=== PATIENT | male | born 1955 | race Caucasian/White ===

== ENCOUNTER 2016-07-11 05:46 | Day surgery (SDC) | payer OTHER ==
--- NOTE | 2016-07-10 11:32 | PCM.ANEPRE ---
Anesthesia Pre-Op Review Reason for Review: STOP BANG 09/15 COMORBIDITIES-OBESITY,HTN,DM,HX CVA Anesthesia Recommendations: Proceed with Procedure Additional Comments 61 year old male for low risk surgery 4th Toe condylectomy by Dr. Carrizales for expanding ulcer. stop bang 09/15. obesity, HTN, DM hx of CVA. consider BLANCA protocol.unable to elicit 4 mets due to chronic foot ulcer. ultimate decision by anesthesiologist day of after focused H&P. Bk Tran MD Jul 10, 2016 11:32
[~2016-07-11] VITALS: Ht 175.3 cm; Wt 115.0 kg
[~2016-07-11 05:46] MED LIST: ASPI-973 PO; ATOR20TA PO; CIPR-231 PO; HYDR-4003 PO; INSU100I SQ; INSU100I13 SUBQ; KEN1O TP; LISI-567 PO; METF850T2 PO; METR45GE TP; MULT-1018 PO; OMEG1CAP25 PO; OMEP20TA86 PO
[2016-07-11] MEDS ORDERED: Propofol 10,000 mCg/mL 20 mL Inj ONE (05:47)
[2016-07-11] MEDS ORDERED: fentaNYL-PF 50 mCg/mL 2 mL Inj ONE (05:47)
[2016-07-11] MEDS: Lactated Ringer's 1,000 ML IV SCH ×2 (05:51→07:31)
[2016-07-11] MEDS ORDERED: HYDR12.55 PO (06:06)
[2016-07-11 06:28] VITALS: BP 155/75; PULSE 73; RESP 18; O2SAT 99
[2016-07-11] MEDS ORDERED: CeFAZolin Inj 2 GM in IV Premix 1 EACH IV ONE (07:00)
[2016-07-11] MEDS ORDERED: HYDROmorphone 1 mg/mL Inj IVPUSH PRN (07:25)
[2016-07-11] MEDS ORDERED: fentaNYL-PF 50 mCg/mL 2 mL Inj IVPUSH PRN (07:25)
[2016-07-11] MEDS ORDERED: hydrALAZINE 20 mg/mL Inj IVPUSH PRN (07:25)
[2016-07-11] MEDS ORDERED: EPHEDrine Sulfate 50 mg/mL Inj IVPUSH PRN (07:25)
[2016-07-11] MEDS ORDERED: Lactated Ringer's 500 ML IV PRN (07:25)
[2016-07-11] MEDS ORDERED: MetoCLOpramide 5 mg/mL 2 mL Inj IVPUSH PRN (07:25)
[2016-07-11] MEDS ORDERED: Atropine 0.4 mg/mL Inj IVPUSH PRN (07:25)
[2016-07-11] MEDS ORDERED: Phenylephrine 10,000 mCg/mL Inj IVPUSH PRN (07:25)
[2016-07-11] MEDS ORDERED: Labetalol 5 mg/mL 4 mL Inj IV PRN (07:25)
[2016-07-11] MEDS ORDERED: Ondansetron 2 mg/mL 2 mL Inj IVPUSH PRN (07:25)
[2016-07-11] MEDS ORDERED: Lactated Ringer's 1,000 ML IV SCH (07:25)
--- NOTE | 2016-07-11 07:25 | PCM.HPANE ---
Patient Data Date of Service: Jul 11, 2016 Surgeon Admitting Provider: Attending Provider:Sonya Carrizales DPM Primary Care Physician:Medical Clinic,[facility] Other Provider:Nathalie Dial Anesthesia Reason for Visit Right Ulcer To Bone Ht/WT & BMI Height (Feet): 5 Height (Inches): 9.00 Weight (Kilograms): 115.0 Body Mass Index 37.00 Allergies Coded Allergies: No Known Allergies (Verified Allergy, Unknown, 07/09/16) Past Anesthesia History Anesthesia History: Denies:: Abnormal Airway, Anesthesia Reactions, Difficult Intubation, Malignant Hyperthermia Diabetes History Hx Diabetes?: Yes Type of Diabetes: Type II Glycemic Control: Insulin & Oral Medication Current Bedside Blood Glucose: 145 MRSA MRSA: No Medications Blood Thinner: Aspirin Hypertension Medication: Yes (LISINOPRIL) Home Meds Incl Beta Coretta: No Reported Medications Hydrochlorothiazide 12.5 Mg Wtichv19.5 Mg PO DAILY 30 Days Ref 0 07/11/16 Triamcinolone Acet (Triamcinolone Acetonide Ointment)1 Applic/0.25 Gm Oint1 Applic TP BID #60 GM Ref 0 0.1% 07/09/16 Triamcinolone Acet (Triamcinolone Acetonide Ointment)1 Applic/0.25 Gm Oint1 Applic TP BID #60 GM Ref 0 07/09/16 Omeprazole 20 Mg Tablet.dr20 Mg PO DAILY 07/09/16 [place]-3 Fatty Acids/Fish Oil ([place] 3 Fish Oil Softgel)1 Each Capsule.dr1 Each PO DAILY 07/09/16 Insulin Aspart (NovoLOG U-100 Pen)100 Unit/Ml Insuln.pen6-8 Units SQ TIDAC SLIDING SCALE 07/09/16 Metronidazole (Metronidazole Gel)1 Applic/0.25 Gm Gel1 Applic TP DAILY #45 GM Ref 0 0.75% 07/09/16 Metformin 850 Mg Mpnhwg522 Mg PO DAILY Ref 0 07/09/16 Lisinopril 20 Mg Gvicoe51 Mg PO DAILY 30 Days Ref 0 07/09/16 Insulin Glargine (Lantus U100 Solostar Insulin Pen)100 Unit/1 Ml Insuln.pen30 Unit SUBQ BID #1 PENINJ Ref 0 PLEASE VERIFY DOSAGE 07/09/16 Atorvastatin (Lipitor)20 Mg Jvetho28 Mg PO DAILY Ref 0 07/09/16 Aspirin 81 Mg Muckam21 Mg PO DAILY Ref 0 07/09/16 Discontinued Reported Medications Hydrocodone-Acetaminophen 5-325 mg 1 Each Tablet1 Tablet PO Q6H PRN For Pain Ref 0 07/09/16 Multivitamin (Multi Vitamin Daily)1 Each Tablet1 Each PO DAILY 30 Days Ref 0 07/09/16 Ciprofloxacin (Cipro)500 Mg Sbqrzl438 Mg PO BID Ref 0 07/09/16 Levofloxacin 500 Mg Bgusqx907 Mg PO DAILY 10 Days 08/05/13 [amlodipine] No Conflict Check5 Mg PO DAILY 11/19/12 Aspirin (Miniprin)81 Mg Tablet.dr81 Mg PO DAILY 11/18/12 Citalopram-Expunged Drug, Do Not Renew! 20 Mg Radljf37 Mg PO DAILY 11/18/12 Vitamin B Complex (D-Eueamam-Fnvnhhl B-12)1 Each Tablet1 Each PO DAILY 11/18/12 Ranitidine Hcl (Zantac 75)75 Mg Nupkxc938 Mg PO DAILY 11/18/12 Cholecalciferol (D3)-Expunged Drug, Do Not Re (Vitamin Y-9-Azfzjpkd Drug, Do Not Renew!)2,000 Unit Capsule2,000 Unit PO DAILY 11/18/12 Insulin Aspart-Expunged Drug, Do Not Renew! (Novolog-Expunged Drug, Do Not Renew !)100 U/Ml Cartridge U Sq Tidwm 6-8 units plus sliding scale three times daily with meals 02/06/11 Simvastatin-Expunged Drug, Choose New Med! 20 Mg Jxomxu89 Po Hs 02/06/11 Lisinopril-Expunged Drug, Do Not Renew! 20 Mg Vraucb66 Mg PO DAILY 02/06/11 History History of ENT Problems?: No HEENT History: Denies:: Abnormal Airway Cataracts Difficult Intubation Dysphagia Sinus Problem Hx of Heart Problems?: Yes Cardiovascular History: Positive for:: Hypertension (HYPERLIPIDEMIA) Irregular Heartbeat (HX SVT DX BY KIMANI DENTON 04/2011) Denies:: Abdominal Aortic Aneurism Atrial Fibrillation Cardiac Surgery Chest Pain Congestive Heart Failure Edema Pacemaker Thrombophlebitis Valvular Heart Disease Hx of Respiratory Problem?: No Respiratory History: Denies:: Asthma COPD Chest Surgery Emphysema Tuberculosis Use of C-PAP Machine Hx Neurologic Problems?: Yes Neurological History: Positive for:: CVA (SLIGHT VISION CHANGES,POSS COGNITIVE EFFECTS) Denies:: Alzheimer's Disease Dementia Dizziness Headaches Parkinson's Disease Seizures Hx of GI Problems?: Yes Gastrointestinal History: Positive for:: Heartburn Denies:: Cirrhosis Diverticulitis Gastroesphageal Reflux Gastrointestinal Bleeding Hepatitis Hiatal Hernia Rectal Bleeding Other GI Pertinent History: S/P HERNIA RPR Hx of Problems?: No Genitourinary History: Denies:: HX of Hemodialysis Kidney Stones Urinary Tract Infection HX of Peritoneal Dialysis: No Male Hx: Denies:: Prostate Problems Scrotal Mass (Hx of scrotal cellulitis) Testicular Surgery Skin History: Positive for:: History Skin Disorders? (Chronic right foot ulcers RT TOE ULCER TO BONE=CURRENT PROBLEM) Denies:: Pressure Ulcers Hx Musculoskeletal Problems?: Yes Musculoskeletal History: Denies:: Back Injury Degenerative Joint Joint Replacement Musculoskeletal Trauma Hx of Psycho/Social Problems?: Yes Psycho Social History: Positive for:: Hx Depression Denies:: Anxiety Bipolar Disorder Suicide Attempt Hx Surgeries?: Yes (hernia repair, cellulitis surgery x2, amputation right #2 toe w/foot bones) Hx Any Other Health Problems?: Yes Other History: Positive for:: Cancer (skin) Hospitalization (surgeries) Denies:: Endocrine Disease Thyroid Disease History Blood Transfusions: Denies:: Blood Transfusions Hx Diabetes: YesBedside Blood Glucose: 145 Hx Alcohol Use: YesHx Substance Use: NoHave You Smoked inLast 12 mo: No Stop/Bang S-Snoring: Do You Snore Loudly: No T-Tired: feel tired, fatigued: No O-Obsered: Observed not breath: No P-Blood Pressure: treated: Yes B- Body Mass Index > 35 kg/m2: Yes A- Age over 50: Yes N- Neck Large Circumference: Yes G- Gender Male: Yes BLANCA Total Score: 5 Risk Assessment Category Category 1A: Patient has history of documented sleep apnea, and HAS NOT received any narcotic, sedative or anesthesia administration during this stay. Category 1B: Patient has history of documented sleep apnea, and HAS received any narcotic , sedative or anesthesia administration during this stay Category 2: Patient has SUSPECTED Obstructive Sleep Apnea, and HAS received any narcotic , sedative or anesthesia administration during this stay. Category 3: Patient has SUSPECTED Obstructive Sleep Apnea and HAS NOT received narcotic, sedative or anesthesia administration during this stay. Category 4: Outpatient in Procedural Areas with known sleep apnea or who screen positive for High Risk via the STOP/BANG questionnaire. Exam Exam Vital Signs Vital Signs Date Time Temp Pulse Resp B/P Pulse Ox O2 Delivery O2 Flow Rate FiO2 07/11/16 06:28 36.0 73 18 155/75 99 Room Air General Appearance: Alert, Oriented X3, Cooperative HEENT/AIRWAY: MP 3 Lungs: Clear to Auscultation Heart: Regular Rate/Rhythm Meds/Labs/Diagnostics Admission Meds Current Medications Lactated Ringer's (Lr) 1,000 ml @ 120 mls/hr Q8H20M IV Last administered on t 05:51; Start 07/11/16 at 05:00; Stop 07/11/16 at 13:19 Bedside Blood Glucose: 145 Labs Test 07/11/16 06:20 Sodium Level 139mEq/L (134-144) Potassium Level 5.5mEq/L (3.5-5.2) Chloride Level 104mEq/L (97-108) Carbon Dioxide Level 21mmol/L (18-29) Blood Urea Nitrogen 36mg/dL (8-27) Creatinine 1.17mg/dL (0.76-1.27) Estimat Glomerular Filtration Rate 67mL/min (>59) Glucose Level 157mg/dL (60-99) Calcium Level 9.3mg/dL (8.5-10.1) Plan Impression Patient chart reviewed, patient interviewed and anesthestic plan with risks, benefits, and alternatives discussed, and informed consent obtained. NPO Status: 730PM ASA Physical Status: ASA3 Severe Disease Anesthetic Plan: MAC Bene/Risks/Altern/Consents: Yes HP Complete Prior to Induction: Yes Srikanth Blanco MD Jul 11, 2016 07:25
[2016-07-11] MEDS ORDERED: Lidocaine 1%-Epi 1:100,000 20 mL Inj NERVEBLOCK ONE (07:59)
[2016-07-11 08:35] VITALS: BP 156/86; PULSE 63; RESP 18; O2SAT 99
[2016-07-11] MEDS ORDERED: HYDROcodone-APAP 5-325 mg Tablet PO PRN (08:45)
--- NOTE | 2016-07-11 08:52 | PCM.PODPO ---
Podiatry Operative Report Date of Service: Jul 11, 2016 Date of Service Jul 11, 2016 Pre Operative Diagnosis Chronic ulcer to bone, right foot with prominent fourth toe proximal phalangeal condyle and metatarsal stump. Post Operative Diagnosis Chronic ulcer to bone, right foot with prominent fourth toe proximal phalangeal condyle and metatarsal stump. Procedure Excision of prominent bone, proximal phalangeal base and distal fourth metatarsal stump, right foot Excision of ulceration, plantar right foot through skin, soft tissue and joint capsule. Surgeon Surgeon: Sonya Carrizales DPM Assistants: None Indication for Procedure Chronic, nonhealing ulceration to bone. Multiple infections related to the ulceration. Findings Consistent with diagnosis, uncertain of possible osteomyelitis. Details of Procedure The patient was identified in the preoperative holding area. He was brought to the operating room and placed on the operating table in the supine position. Timeout was completed, IV sedation initiated, and the right foot anesthetized in the local block using lidocaine 2% with epinephrine. The right foot was then prepped and draped in the usual aseptic manner. An incision was made on each side of the plantar ulceration and the ulceration was excised in its entirety through skin, subcutaneous tissue, and scarred capsule. Bleeding vessels were cauterized as needed, irrigation was performed with lactated Ringer solution. A dorsal incision was made at the fourth metatarsophalangeal joint. The scar contracture of the fourth toe was released. The proximal phalangeal base condyle was excised. The distal stump of the metatarsal was excised. Both were found to be communicating with the plantar ulceration. Irrigation was performed. The bone was rasped smooth at this level and irrigated again. Full-thickness closure was done with 3-0 Prolene suture through skin, subcutaneous tissue, and capsule using vertical suturing technique and simple sutures. The dressing consisted of Colvin silk and wet-to- dry gauze dressing with Kerlix and overwrapped with a lightly compressive Coban. Grafts, Implants: None Complications There were no periprocedural complications identified. Condition Stable Anesthetic Administered: MAC Drains: None Catheters: None Output, Estimated Blood Loss: 5 (ml) Blood Admin during surgery: No Surgical Cast or Splint: Post-op Boot Surgical Specimen Removed: Yes Specimen sent to Pathology: Yes Surgical Specimen description: Resected bone from the fourth metatarsal. Post Operative Plan The patient will be weightbearing in a postoperative shoe to disperse weight bearing forces along the forefoot. Dressing will be changed in the office on Thursday. By mouth pain medication has been dispensed. Sonya Carrizales DPM Jul 11, 2016 08:52
[2016-07-11 08:53] VITALS: BP 139/83; PULSE 63; RESP 18; O2SAT 96
[2016-07-11 09:29] VITALS: BP 156/75; PULSE 63; RESP 18; O2SAT 97
--- NOTE | 2016-07-11 09:53 | PCM.ANEP1 ---
Post Anesthesia Phase 1 PACU Phase 1 Assessment Date of Service: Jul 11, 2016 Vital Signs Vital Signs Date Time Temp Pulse Resp B/P Pulse Ox O2 Delivery O2 Flow Rate FiO2 07/11/16 09:29 63 18 156/75 97 Room Air 07/11/16 08:53 35.9 63 18 139/83 96 Room Air 07/11/16 08:35 35.9 63 18 156/86 99 Room Air 07/11/16 06:28 36.0 73 18 155/75 99 Room Air Anesthetic Administered: MAC Level of Alertness: Awake, talking DEL CID's with Equal Strength: Yes Pain: No Pain Scale Score: 0 Nausea or Vomiting: No Oxygen Delivery: Room Air Srikanth Blanco MD Jul 11, 2016 09:53
--- NOTE | 2016-07-11 09:54 | PCM.ANEP2 ---
Post Anesthesia Evaluation ASA/CMS Post Anesthesia Date of Service: Jul 11, 2016 VS in Patient's Normal Range?: Yes Resp Stable; Airway Patent?: Yes CV Function & Hydration Stable: Yes Mental Status Recovered?: Yes Pain control Satisfactory?: Yes N/V Control Satisfactory?: Yes Srikanth Blanco MD Jul 11, 2016 09:54
--- NOTE | 2016-07-16 14:03 | PATH ---
SURGICAL PATHOLOGY Attending Physician:Sonya Carrizales CASE STATUS: Signed Out PATIENT NAME: FORD ALVARADO PID: [id number] : 1955 DATE COLLECTED:07/11/2016 16:05 SPECIMEN: Toe(s), Amputation, Non-Traumatic CLINICAL HISTORY: RIGHT ULCER TO BONE, RIGHT ULCER TO BONE 1). RIGHT FOOT 4TH ULCER BONE FINAL DIAGNOSIS: 1.BONE FROM FOURTH TOE, RIGHT FOOT: BONE NECROSIS. NEGATIVE FOR SIGNIFICANT INFLAMMATION. NEGATIVE FOR NEOPLASM. ICD10 CODE M87.377 GROSS DESCRIPTION: The specimen is received in formalin, labeled with the patient's name, sublabeled as right 4th toe bone and consists of one an unoriented piece of bone (1.0 x 0.5 x 0.5 cm). The exterior is pinto-white smooth and shiny. The bone is easily sliced with a scalpel. The cut surface is lee and porous. Ink code: black-resection margin. Section code: (A) bone, bisected. Specimen entirely submitted. Note: The bone has been decalcified. 07/12/16 MICRO DESCRIPTION: See diagnosis. ICD-9 CODES: CPT CODES: 1: 35539 Electronically Signed Out Bashir Bourne MD [facility] Pathology [facility] [address], [place] [address] Technical component performed at [facility], [address] [place] [address] Ave[address], [place], [address]
== END 2016-07-11 23:59 | disposition home or self-care (01) ==
LOC: SAS 05:46
PROVIDERS: ATTEND Podiatrist
DX: E11.621 Type 2 diabetes mellitus with foot ulcer (principal); L97.514 Non-pressure chronic ulcer of other part of right foot with necrosis of bone; I10 Essential (primary) hypertension; E11.49 Type 2 diabetes mellitus with other diabetic neurological complication; F32.9 Major depressive disorder, single episode, unspecified; Z86.73 Personal history of transient ischemic attack (TIA), and cerebral infarction without residual deficits; Z79.82 Long term (current) use of aspirin; Z79.4 Long term (current) use of insulin; Z79.84 Long term (current) use of oral hypoglycemic drugs; Z85.828 Personal history of other malignant neoplasm of skin
CPT/HCPCS: 28288; 36415; 80048; J0690; J2250; J3010; J7120